=== PATIENT | female | born 1965 | race Caucasian/White ===

== ENCOUNTER 2018-11-06 15:05 | Emergency (ER) | payer MEDICAID, OTHER ==
[~2018-11-06] VITALS: Ht 160 cm; Wt 191.1 kg
[2018-11-06 15:17] VITALS: Ht 160 cm; Wt 191.1 kg
[2018-11-06] MEDS ORDERED: KETOROLAC 60 MG INJ IM STA (21:04)
[2018-11-06] MEDS ORDERED: IBUP-1542 PO (22:58)
--- NOTE | 2018-11-06 23:04 | ERD ---
ER Documentation Chief Complaint Chief Complaint rt knee pain s/p slip and fall today in bathroom HPI 53-year-old female patient with a past medical history of bilateral meniscus surgery, 10-18 years ago presents to the ED complaining of a right knee injury. Patient reports that this happened at 11 AM, actually slipped and fell and felt like she twisted her right knee. Denies any head or neck injuries. She describes as a pulsating sensation and rates it an 8 out of 10. Patient reports that when she walks, she feels like a cracking sensation. Denies any chest jamar n, shortness of breath, nausea, vomiting, diarrhea, neck stiffness. ROS All systems reviewed and are negative except as per history of present illness. Medications Home Meds Active Scripts Ibuprofen* (Motrin*) 600 Mg Tab, 600 MG PO Q6, #30 TAB take with food Prov:ANAY BATES PA-C 11/06/18 PMhx/Soc Medical and Surgical Hx: pt denies Medical Hx, pt denies Surgical Hx Hx Alcohol Use: No Hx Substance Use: No Hx Tobacco Use: No Smoking Status: Never smoker FmHx Family History: No diabetes, No coronary disease Physical Exam Vitals Vital Signs Date Temp Pulse Resp B/P (MAP) Pulse Ox O2 O2 Flow FiO2 Time Delivery Rate 11/06/18 98.8 83 16 181/78 98 15:17 (112) Physical Exam Const: Hsx-[id number], well-nourished. In no acute distress. Head: Atraumatic, normocephalic Eyes: Normal Conjunctiva without injection ENT: Normal external ear, nose and mouth. Neck: Full range of motion. No meningismus. Resp: Clear to auscultation bilaterally. No wheezing, rhonchi, rales, or crackles. No accessory muscle use. No retractions. Cardio: Regular rate and rhythm, no murmurs Skin: No petechiae or rashes Back: No midline tenderness. No CVA tenderness. Ext: No cyanosis, or edema. Cap refill less than 2 seconds. Distal pulses intact bilaterally. Tenderness palpation of the infrapatellar region. No fluctuance or induration. Patient was able to flex, extend bilateral knees without any difficulty. Neur: Awake and alert. Normal gait and coordination. Muscle strength 5/5. Sensation intact bilaterally. Psych: Normal Mood and Affect Results 24 hrs Laboratory Tests Test 11/06/18 21:19 POC Beta HCG, Qualitative NEGATIVE Current Medications Medications Dose Sig/Kota Start Time Status Last (Trade) Ordered Route PRN Stop Time Admin Dose Reason Admin Ketorolac 60 mg ONCE STAT 11/06/18 DC 11/06/18 Tromethamine IM 21:04 11/06/18 21:22 (Toradol) 21:06 Procedures/MDM 53-year-old female patient with a past medical history of meniscus surgery presents to ED complaining of right knee injury. Patient is afebrile and nontoxic-appearing. A right knee x-ray was ordered to further evaluate patient. Urine negative. Patient given Toradol 60 mg IM with improvement of her symptoms. Patient ambulate without any difficulty. IMPRESSION: 1. Moderate medial joint compartment osteoarthritis. 2. Patellofemoral joint osteoarthritis. 3. No acute changes. Patient is placed in a right knee Edgar wrap. Crutches were offered to patient, however patient denied wanting crutches. Splint Assessment: Neurovascularly intact pre and post splint placement with good fit. Differentials include meniscus versus ligamentous injury. She noted to also have osteoarthritis noted of her right knee. Patient's extremity symptoms have stabilized while they have been evaluated in the department and are appropriate for outpatient follow up. No evidence of fractures, dislocations, compartment syndrome, neurologic injury, vascular injury, open joint, open fracture, tendon laceration, septic arthritis, osteomyelitis, DVT, foreign body, or other emergent conditions. Diagnosis: Knee injury Discharge medications: Ibuprofen Follow up with primary care physician in 1-2 days for referral to see an ortho pedic physician for further evaluation and treatment. Patient should obtain an MRI of the right knee. Instructed patient to return to the ED sooner for any worsening symptoms. Patient's questions were answered. Patient is hemodynamically stable. Patient understood and agreed with discharge plan. Patient discharged stable. Disclaimer: Inadvertent spelling and grammatical errors are likely due to EHR/dictation software use and do not reflect on the overall quality of patient care. Also, please note that the electronic time recorded on this note does not necessarily reflect the actual time of the patient encounter. Departure Diagnosis: Primary Impression: Knee injury Encounter type: initial encounter Laterality: right Qualified Codes: S89.91XA - Unspecified injury of right lower leg, initial encounter Condition: Stable Patient Instructions: Knee Pain, Meniscus Injury (Possible), Osteoarthritis, Knee Sprain: Collateral Ligaments Referrals: [facility] YOU HAVE RECEIVED A MEDICAL SCREENING EXAM AND THE RESULTS INDICATE THAT YOU DO NOT HAVE A CONDITION THAT REQUIRES URGENT TREATMENT IN THE EMERGENCY DEPARTMENT. FURTHER EVALUATION AND TREATMENT OF YOUR CONDITION CAN WAIT UNTIL YOU ARE SEEN IN YOUR DOCTORS OFFICE WITHIN THE NEXT 1-2 DAYS. IT IS YOUR RESPONSIBILITY TO MAKE AN APPOINTMENT FOR FOLOW-UP CARE. IF YOU HAVE A PRIMARY DOCTOR --you should call your primary doctor and schedule an appointment IF YOU DO NOT HAVE A PRIMARY DOCTOR YOU CAN CALL OUR PHYSICIAN REFERRAL HOTLINE AT IF YOU CAN NOT AFFORD TO SEE A PHYSICIAN YOU CAN CHOSE FROM THE FOLLOWING [facility] [address] [employer] [facility] [address] [facility] [facility] [address] [facility] [address] [facility] [address] [facility] [facility]. [facility] [address] [facility]. [facility] YOU HAVE RECEIVED A MEDICAL SCREENING EXAM AND THE RESULTS INDICATE THAT YOU DO NOT HAVE A CONDITION THAT REQUIRES URGENT TREATMENT IN THE EMERGENCY DEPARTMENT. FURTHER EVALUATION AND TREATMENT OF YOUR CONDITION CAN WAIT UNTIL YOU ARE SEEN IN YOUR DOCTORS OFFICE WITHIN THE NEXT 1-2 DAYS. IT IS YOUR RESPONSIBILITY TO MAKE AN APPOINTMENT FOR FOLOW-UP CARE. IF YOU HAVE A PRIMARY DOCTOR --you should call your primary doctor and schedule and appointment IF YOU DO NOT HAVE A PRIMARY DOCTOR YOU CAN CALL OUR PHYSICIAN REFERRAL HOTLINE AT . IF YOU CAN NOT AFFORD TO SEE A PHYSICIAN YOU CAN CHOSE FROM THE FOLLOWING [facility]: [facility] [address] [place] [address] [facility] [address] [place] [address] [facility] [address] [place] [address] [facility] Urgent Care 7 a.m.- 11 p.m. Every Day of the Week NO APPOINTMENT OR AUTHORIZATION NEEDED [facility] Hours: Mon-Fri 9:00 AM - 5:00 PM Additional Instructions: Llame al doctor JOE y suly benjy LOUISE PARA DENTRO DE 2-3 FITZPATRICK para benjy remisin para claudia a un mdico ortopdico.Dgale a la secretaria que nosotros le instruimos hacer esta louise.Avise o llame si guerrero condicin se empeora antes de la louise. Regresa aqui si peor o no mejor. ANAY BATES PA-C Nov 06, 2018 23:04
[2018-11-06 23:07] VITALS: BP 159/86; PULSE 69
== END 2018-11-06 23:08 | disposition home or self-care (01) ==
LOC: FTE 15:05
DX: S89.91XA Unspecified injury of right lower leg, initial encounter (principal); W01.0XXA Fall on same level from slipping, tripping and stumbling without subsequent striking against object, initial encounter; Y92.002 Bathroom of unspecified non-institutional (private) residence as the place of occurrence of the external cause
CPT/HCPCS: 73562; 81025; 96372; J1885; Z7502